=== PATIENT | male | born 1950 | race Caucasian/White ===

== ENCOUNTER 2025-07-19 05:17 | Observation (INO) | payer MEDICARE ==
[2025-07-12 10:34] LABS: MEAN PLATELET VOLUME 8.0 FL (7.4-10.4); RED CELL DISTRIBUTION WIDTH 13.4 % (11.5-14.5)
[2025-07-12 10:58] LABS: CREATININE 0.79 MG/DL (0.60-1.10); TOTAL CARBON DIOXIDE 32.1 MMOL/L (24-32); eGFR > 90 ML/MIN
[~2025-07-19] VITALS: Ht 167.6 cm; Wt 72.9 kg
[2025-07-19] VITALS (35 sets, daily range): BP systolic 108–155; BP diastolic 57–81; PULSE 57–100; RESP 10–18; TEMP 97.2–98.9; O2SAT 96–99
[~2025-07-19 05:17] MED LIST: ASPI-1264 PO; CHLO25TA10 PO; IBUP-24 PO; OLME5TAB29 PO
[2025-07-19] MEDS: ceFAZolin 2gm/dext,iso 50mL 50 ML IV ONE (06:35)
[2025-07-19] MEDS: ringers solution, lacted 1,000 ML IV SCH ×2 (06:35→07:30)
[2025-07-19] MEDS ORDERED: INDOCYANINE GREEN 25 MG/10 ML VIAL IV ONE (06:42)
[2025-07-19] MEDS ORDERED: fluoroscein sod 10% (100mg/ml) 5ml vial ONE (06:42)
[2025-07-19] MEDS ORDERED: BUPIVACAINE liposomal/PF 13.3 MG/ML 10mL vial IM ONE (06:42)
[2025-07-19] MEDS ORDERED: BUPIVAcaine 0.25% w/Epi /PF 30ml vial ONE (06:42)
[2025-07-19] MEDS ORDERED: BUPIVAcaine 2.5mg/ml inj 50ml vial (contains preservative) ONE (06:46)
[2025-07-19] MEDS ORDERED: ondansetron/PF 4mg/2ml inj IV PRN ×2 (07:30→11:55)
[2025-07-19] MEDS ORDERED: morphine 4 MG/ML inj SYRINge IV PRN (07:30)
[2025-07-19] MEDS ORDERED: hydrALAZINE 20mg/ml inj. IV PRN (07:30)
[2025-07-19] MEDS ORDERED: HYDROmorphone/PF 0.2 MG/ML SYRINGE IV PRN ×2 (07:30)
[2025-07-19] MEDS ORDERED: labetalol 20mg/4ml (5mg/ml) syringe IV PRN (07:30)
[2025-07-19] MEDS ORDERED: midazolam 1 mg/ML 2ml injection ONE (07:33)
[2025-07-19] MEDS ORDERED: fentaNYL /PF 50mcg/ml 5ml ampule ONE (07:58)
[2025-07-19] MEDS ORDERED: propofol inj 20 ML IV ONE (08:09)
[2025-07-19] MEDS ORDERED: LIDOcaine 2% (20mg/ml) 5ml vial ONE (08:09)
[2025-07-19] MEDS ORDERED: ondansetron/PF 4mg/2ml inj ONE (08:10)
[2025-07-19] MEDS ORDERED: dexamethasone sod phosphate 4mg/ml inj. ONE (08:10)
[2025-07-19] MEDS ORDERED: rocuronium 10mg/ml inj IV ONE ×2 (08:10→08:58)
[2025-07-19] MEDS ORDERED: hydrALAZINE 20mg/ml inj. ONE (08:31)
[2025-07-19] MEDS ORDERED: 0.9 % SODIUM CHLORIDE 10 ML VIAL ONE (11:19)
[2025-07-19] MEDS ORDERED: glycopyrrolate 0.2mg/ml inj ONE (11:54)
--- NOTE | 2025-07-19 12:01 | OPERATIVE REPORT ---
Operative Report Providers to ~ Date of Procedure: Jul 19, 2025 Pre-Operative Diagnosis: prostate cancer Post-Operative Diagnosis SAME as PRE-Op Procedure Performed robotic assisted laparoscopic radical prostatectomy Surgeon: Akanksha Kim MD Independent [employer] Agent ELMER Ashby MD Anesthesiologist: Elda Musa Type of Anesthesia: General Findings: prostate approximately 45 grams with enlarged median lobe Complications none Prosthetics\Implants used: 20Fr moreau catheter left lower quadrant YANCY drain Estimated Blood Loss: 200cc Specimen Removed: prostate Description of Procedure: Informed consent was obtained. Patient was taken to the OR and placed supine. General anesthesia was administered. The abdomen and genitalia were prepped and draped. A moreau catheter was inserted into the bladder in usual fashion. A small transverse skin incision was made in the midline superior to the umbilicus. Dissection was carried down to the fascia. Two Vicryl stay sutures were placed into the fascia. The fascia was incised. The peritoneum was entered sharply with Metzenbaum scissors. A 12mm Bella trocar was placed at the umbilicus and secured to the fascia using the stay sutures. The abdomen was insufflated. The 0 degree laparoscope was placed. There were mild adhesions in the left lower quadrant. Three additional 8mm robotic trocars were placed for triangulation to the prostate. A 12mm program support assistant trocar was placed at the right lower quadrant. The patient was placed in Trendelenberg position. The Da Kalee XI robot was then docked in typical fashion. The left lower quadrant adhesions were carefully taken down using scissors. The bowel was then retracted out of the pelvis. An incision was made in the peritoneum posterior to the prostate. The bilateral vas deferens and seminal vesicles were identified, and dissected free from the surrounding tissue. The vas deferens were transected bilaterally. An incision was made in Denonvillier's fascia, and the space between the rectum and prostate was developed towards the apex of the prostate. The space of Retzius was then developed by incising lateral to the medial umbilical ligaments and dividing the urachus. The prostate was defatted anteriorly. There were prominent veins near the apex and lateral aspects of the prostate which were controlled using Bipolar cautery. The endopelvic fascia was incised bilaterally. The dorsal vein complex was then ligated using 2-0 PDS sutures. The moreau catheter was seated against the bladder neck to delineate the bladder neck. The moreau balloon deviated to the right side, suggesting a prominent median lobe of the prostate. The anterior bladder neck was divided. The moreau catheter was brought into the anterior operative field and used for traction of the prostate. There was a prominent median lobe of the prostate protuding slightly into the inferior bladder. The posterior bladder neck was then divided. The vas and seminal vesicles were identified posterior to the prostate. The vas and seminal vesicles were grasped to retract the prostate anteriorly. Using the Harmonic Ligasure device, the right and left prostatic pedicles were divided. This was carried out towards the apex of the prostate. There was moderate inflammation and significant vascularity at the posterior lateral aspects of the prostate. The apical tissues were then off the apical surface of the prostate. The urethra was divided, preserving an adequate urethral stump. The vesicourethral anastomosis was then carried out in a running fashion using 3-0 V-Loc suture. A new 20Fr moreau catheter was placed through the urethra and into the bladder and 20cc sterile saline was placed into the moreau balloon. The bladder was then irrigated with 180cc sterile water, and the anastomosis was watertight. Fibrillar and Surgicel were placed into the pelvis near the anastomosis. The prostate was placed into an Endocatch bag for removal. A 15Fr YANCY drain was then placed into the pelvis through the left lower quadrant trocar. The drain was secured to the skin using 2-0 silk suture. The robot was undocked. The specimen was then extracted through the midline incision. The fascia was closed using a running 0 Vicryl suture. The skin incisions were closed using running subcuticular 4-0 Monocryl sutures. Dermabond was placed over the skin incisions. The patient tolerated the procedure well without any immediate complications. He was transferred to the recovery room in stable condition. Plan: Monitor overnight. YANCY drain to be removed prior to discharge. Moreau catheter will be removed in 7-10 days. Counts repoted as correct: Yes AKANKSHA KIM MD Jul 19, 2025 12:01
[2025-07-19] MEDS: acetaminophen 1,000mg/100ml IV 100 ML IV PRN (13:06)
[2025-07-19] MEDS: morphine 4 MG/ML inj SYRINge IV PRN (13:39)
[2025-07-19] MEDS ORDERED: ceFAZolin 1GM/D5W- ADD-VANTAGE 50 ML IV SCH (16:00)
[2025-07-19] MEDS: normal saline 1000ml 1,000 ML IV SCH (18:07)
[2025-07-19] MEDS: docusate sod 100mg capsule PO SCH (20:00)
[2025-07-19] MEDS: ceFAZolin 1GM/D5W- ADD-VANTAGE 50 ML IV SCH (20:14)
[2025-07-19] MEDS: polyethylene glycol 3350 17gm powd pack PO SCH (20:14)
[2025-07-20 02:00] VITALS: BP 116/65; PULSE 81; RESP 16; TEMP 97.9; O2SAT 99
[2025-07-20] MEDS: HYDROcodone/acetaminophen 5mg/325mg tablet PO PRN (03:02)
[2025-07-20 05:12] LABS: MEAN PLATELET VOLUME 8.4 FL (7.4-10.4); RED CELL DISTRIBUTION WIDTH 13.5 % (11.5-14.5)
[2025-07-20 05:25] LABS: CREATININE 0.89 MG/DL (0.60-1.10); TOTAL CARBON DIOXIDE 29.9 MMOL/L (24-32); eCRCL 66 ML/MIN; eGFR 84 ML/MIN
[2025-07-20 05:45] LABS: NEUTROPHILS % (MANUAL) 80.0 % (42-75)
[2025-07-20 05:46] LABS: LYMPHOCYTES % (MANUAL) 8.0 % (21-51); MONOCYTES % (MANUAL) 12.0 % (2-12); PLATELET ESTIMATE NORMAL
[2025-07-20 06:30] VITALS: BP 124/67; PULSE 68; RESP 19; TEMP 97.8; O2SAT 97
[2025-07-20] MEDS: HYDROcodone/acetaminophen 10/325mg tab PO PRN (07:48)
[2025-07-20 10:30] VITALS: BP 106/61; PULSE 81; RESP 17; TEMP 98.2; O2SAT 99
--- NOTE | 2025-07-24 18:04 | DISCHARGE SUMMARY ---
Discharge Summary Providers to CC ~ Discharge Summary Admission Diagnosis: prostate cancer Hospital Course DATE OF ADMISSION: 07/19/25 DATE OF DISCHARGE: 07/20/25 Discharge Diagnosis\Comment: prostate cancer Operations\Procedures: robotic assisted laparoscopic radical prostatectomy Consultants: none Complications: none Condition on DC: Stable Discharge Summary: Patient taken to OR for RALP as planned. For details, see operative report. Postoperatively, his vital signs and labs remained stable without concern. His YANCY output was low and YANCY was removed on POD 1. His pain was controlled. His diet was slowly advanced. He ambulated independently prior to discharge. He was discharged home with moreau catheter in place and plan for follow up in 7-10 days in office. *Problems/Diagnosis: (1) Malignant neoplasm of prostate Total Time Spent on D/C: Up to 30 Minutes MABEL KIM MD Jul 24, 2025 18:03
== END 2025-07-20 13:25 | disposition home or self-care (01) ==
LOC: PAS 05:17 → SUR 3N 11:52
PROVIDERS: ADMIT Student in an Organized Health Care Education/Training Program; ATTEND Student in an Organized Health Care Education/Training Program
DX: C61 Malignant neoplasm of prostate (principal); Z79.899 Other long term (current) drug therapy; Z98.890 Other specified postprocedural states
CPT/HCPCS: 55866; 80048; 80053; 82948; 85007; 86885; 86900; 86901; 88309; 96365; 96366; A4215; A4358; A4615; A4618; A5200; G0378; J0666; J2710; J3490; J7120; 36415; 85025; 87081; A4338; A4357; A6449; J0131; J0360; J0665; J0690; J1100; J2003; J2250; J2270; J2405; J2704; J3010; J7030